=== PATIENT | male | born 1940 | race Caucasian/White ===

== ENCOUNTER → 2017-12-21 13:48 | Outpatient (CLI) | payer MEDICARE, OTHER, SELFPAY ==
--- NOTE | 2017-12-21 13:53 | DI.RAD.S_ITS ---
PROCEDURE: PAIN L/SI FACET INJ/BLK 1STL INDICATIONS: FACET PAIN FINDINGS: Fluoroscopic spot filming was performed to verify placement of spinal needles at the L3-4 and L4-5 level(s), as labeled on the films. Appropriate location(s) of the needle tip(s) was confirmed by injection of iodinated contrast. IMPRESSION: Intraoperative image documentation of injections at L3-4 and L4-5 Dictated by: Guevara Basurto M.D. on 12/21/2017 at 15:40 Approved by: Guevara Basurto M.D. on 12/21/2017 at 15:41
[2017-12-21 14:29] VITALS: PULSE 61; RESP 16; TEMP 36.7; O2SAT 97
--- NOTE | 2017-12-21 14:29 | PM.PROC.1 ---
Procedures Date/Time Date of procedure: 12/21/17 Time of procedure: 14:29 General Procedure description: PREOP DIAGNOSIS 1. FACET ARTHROPATHY, 2. AXIAL LBP, 3. MULTILEVEL DDD, POST OP DIAGNOSIS 1. FACET ARTHROPATHY, 2. AXIAL LBP, 3. MULTILEVEL DDD, PROCEDURES 1. FLUORSCOPICALLY GUIDED CONTRAST CONTROLLED FACET JOINT INJECTIONS BILATERAL L3/4, L4/5 SURGEON: Raleigh Talavera DO INDICATION Gene s referred by Dr. Youssef is referred for treatment of Axial LBP FINDINGS Multilevel Facet Arthropathy with Clinically significant axial LBP DESCRIPTION OF PROCEDURE Fluoroscopically guided, contrast-controlled bilateral L3/4, L4/5 facet joint injections. Following denial of allergy and review of potential side effects and complications, including, but not necessarily limited to, infection, allergic reaction, local tissue breakdown, stroke, temporary or permanent nerve injury, paralysis, and possible , the patient indicated that the patient understood and agreed to proceed. An informed consent document was signed by the patient, witnessed by a nurse, and placed in the patient's chart. Additionally, other treatment options including medications, modalities, and physical therapy were reviewed with the patient. Per the patient request, IV conscious sedation was administered via 3mg of Versed to patient comfort. The patient's vital signs were monitored throughout the procedure by both the nurse and the physician without significant fluctuation. The patient remained conversant throughout the procedure. In the prone position, following sterile prep and drape of the lumbar region, the posterior aspect of the L3/4, L4/5 facet joints were identified fluoroscopically. The skin was anesthetized via a 25-gauge 1.5-inch needle with 1% lidocaine solution into the corresponding facet joints. At this point, a 22-gauge 3.5-inch spinal needle was atraumatically introduced and advanced under fluoroscopic guidance into the corresponding facet joints. Following negative aspiration, injections of approximately 0.2-cc of Isovue 200 confirmed interarticular placement without vascular uptake. The identical procedure was then performed at the L3/4, L4/5 facet joints on the left. Radiological data, including multiple fluoroscopic views of the lumbosacral spine, reveal a spinal needle at the L3/4, L4/5 facet joints bilaterally. Subsequent views show flow of contrast material both superiorly and inferiorly within the joint space without vascular or intrathecal uptake. At this point, a total of 0.5 cc including a mixture of 0.25 cc Marcaine and 0.25 cc betamethasone was injected without complication into each of the corresponding facet joints. The patient was then transferred to the recovery area where they were observed for an appropriate period of time after the injection. The patient reported a VAS score of 7 prior to the procedure and a post-procedure VAS of 0. Total Fluoroscopy Time: 20.3 seconds Total Conscious Sedation Time: 24min POST OP INSTRUCTIONS The patient was provided a Pain Log to continue to record their response to the target-specific procedure prior to follow-up visit with their referring physician. Additionally, specific post-injection care instructions and a contact number to our office were provided if concerns arise regarding possible complications associated with the procedure are suspected. Raleigh Talavera DO Complications: none
[2017-12-21 14:53] VITALS: BP 144/73; PULSE 61; RESP 15; O2SAT 60
[2017-12-21 14:58] VITALS: BP 135/74; PULSE 60; RESP 14; O2SAT 135
[2017-12-21 15:03] VITALS: BP 145/65; PULSE 58; RESP 15
[2017-12-21 15:16] VITALS: BP 181/84; PULSE 57; RESP 16; O2SAT 98
[2017-12-21 15:21] VITALS: BP 185/82; PULSE 56; RESP 16; O2SAT 97
[2017-12-21] MEDS: BETAMETHASONE 30 MG/5 ML MDV 6 MG INJ (15:27)
[2017-12-21] MEDS: IOPAMIDOL 15 ML VIAL INJ (15:27)
[2017-12-21] MEDS: BUPIVACAINE 0.25% (PF) 30 ML VIAL INJ (15:27)
[2017-12-21] MEDS: LIDOCAINE 1% 20 ML INJ INJ (15:27)
[2017-12-21] MEDS: MIDAZOLAM 5 MG/ML VIAL 3 MG IV (15:29)
== END | disposition home or self-care (01) ==
PROVIDERS: PCP Family Medicine; Visit Provider Physical Medicine & Rehabilitation
DX: M47.816 Spondylosis without myelopathy or radiculopathy, lumbar region (principal); M51.36 Other intervertebral disc degeneration, lumbar region; M54.5 Low back pain
CPT/HCPCS: 64493; 64494; 99152; J0702; J2250

== ENCOUNTER 2018-01-12 12:57 | Outpatient (CLI) | payer MEDICARE, OTHER, SELFPAY ==
[2018-01-12] VITALS (7 sets, daily range): BP systolic 132–174; BP diastolic 66–81; PULSE 54–58; RESP 14–18; TEMP 36.7; O2SAT 97–100
--- NOTE | 2018-01-12 13:00 | DI.RAD.S_ITS ---
PROCEDURE: PAIN L/SI FACET INJ/BLK 1STL INDICATIONS: 77-year-old male with facet joint arthropathy. FINDINGS: Fluoroscopic spot filming was performed to verify placement of spinal needles at the bilateral L3-L5 level(s), as labeled on the films. Appropriate location(s) of the needle tip(s) was confirmed by injection of iodinated contrast. IMPRESSION: Fluoroscopic guidance for bilateral L3-L5 nerve root blocks. Dictated by: Shamir Rosenberg M.D. on 01/12/2018 at 15:46 Approved by: Shamir Rosenberg M.D. on 01/12/2018 at 15:47
--- NOTE | 2018-01-12 13:33 | P.PCN_ITS ---
Procedures Date/Time Date of procedure: 01/12/18 Time of procedure: 14:28 General Procedure description: POST OP DIAGNOSIS 1. FACET ARTHROPATHY PROCEDURES 1. BILATERAL L3, L4 AND L5 MB BLOCKS PHYSICIAN: DO JESSICA Leung is referred by Dr. Youssef for treatment of Bilateral Axial LBP. DESCRIPTION OF PROCEDURE Fluoroscopically guided, contrast-controlled bilateral L3, L4 AND L5 medial branch blocks with 0.5cc of 0.5% Marcaine. Following denial of allergy and review of potential side effects and complications, including, but not necessarily limited to, infection, allergic reaction, local tissue breakdown, nerve injury, paralysis, stroke and possible , the patient indicated that the patient understood and agreed to proceed. An informed consent document was signed by the patient, witnessed by a nurse, and placed in the patient's chart. Per the patient request, IV conscious sedation was administered via 5mg of Versed to patient comfort. The patient's vital signs were monitored throughout the procedure by both the nurse and the physician without significant fluctuation. The patient remained conversant throughout the procedure. In the prone position, following sterile prep and drape of the lumbar region, the right L3, L4 AND L5 anatomical location of the medial branch of the dorsal ramus was identified fluoroscopically. Subsequently an anesthetic skin wheal using 1% lidocaine solution was initiated at each of the anatomical spots. Subsequently then a 22-gauge 3.5-inch spinal needle was atraumatically introduced and advanced under fluoroscopic guidance at each of the corresponding sites at the right L3, L4 AND L5 MB. After negative aspiration, 0.2 cc of Isovue 200 was injected, confirming placement without vascular or intrathecal uptake. Subsequently then 0.5 cc of 0.5% Marcaine solution was injected at each of the corresponding sites at the Right L3, L4 AND L5 medial branch locations. The identical procedure was replicated on the left. The patient tolerated the procedure well without signs or symptoms of complications. Post-procedure, the patient was monitored initiating provocative activities to measure the amount of relief from block of the facetogenic pain. The patient reported a VAS of 7 prior to the procedure and a post-procedure VAS of 1. It has been a pleasure to assist in the diagnostic and therapeutic care of your patient. Total Fluoroscopy Time: 24.8 seconds Total Conscious Sedation Time: 24min POST OP INSTRUCTIONS The patient was provided with a Pain Log to complete over the next several hours and subsequent days prior to the patient's follow up with the ordering physician. If the patient has sampling theory teacher relief to the solution applied, then they may be a candidate for medial branch rhizotomy. The patient is aware , was provided, once again, with a Pain Log and will follow up with the referring physician for review and clinical correlation Raleigh Talavera DO Complications: none
[2018-01-12] MEDS: BETAMETHASONE 30 MG/5 ML MDV 6 MG INJ (13:55)
[2018-01-12] MEDS: IOPAMIDOL 15 ML VIAL 3 ML INJ (13:55)
[2018-01-12] MEDS: LIDOCAINE 1% 20 ML INJ 10 ML INJ (13:55)
[2018-01-12] MEDS: BETAMETHASONE 30 MG/5 ML MDV 12 MG INJ (13:55)
[2018-01-12] MEDS: BUPIVACAINE 0.5% (PF) 30 ML VIAL 5 ML INJ (13:55)
[2018-01-12] MEDS: MIDAZOLAM 5 MG/5 ML VIAL IV (13:55)
== END 2018-01-12 15:00 ==
LOC: RAD 12:59
PROVIDERS: PCP Family Medicine; Visit Provider Physical Medicine & Rehabilitation
DX: M47.27 Other spondylosis with radiculopathy, lumbosacral region (principal); M51.16 Intervertebral disc disorders with radiculopathy, lumbar region; M46.96 Unspecified inflammatory spondylopathy, lumbar region
CPT/HCPCS: 64493; 64494; 64495; 99152; 99153; J0702; J2250

== ENCOUNTER 2018-02-22 14:43 | Outpatient (CLI) | payer MEDICARE, OTHER, SELFPAY ==
[2018-02-22] VITALS (8 sets, daily range): BP systolic 146–166; BP diastolic 50–85; PULSE 50–57; RESP 16–18; TEMP 36.7; O2SAT 96–100
--- NOTE | 2018-02-22 14:44 | DI.RAD.S_ITS ---
PROCEDURE: PAIN L/S TRANSFORAMINAL INJECT INDICATIONS: Foraminal stenosis with right L4 radiculopathy FINDINGS: Fluoroscopic spot filming was performed to verify placement of spinal needles at the right L4 level(s), as labeled on the films. Appropriate location(s) of the needle tip(s) was confirmed by injection of iodinated contrast. IMPRESSION: Intraoperative imaging for lower lumbar injection Dictated by: Guevara Basurto M.D. on 02/23/2018 at 8:33 Approved by: Guevara Basurto M.D. on 02/23/2018 at 8:34
--- NOTE | 2018-02-22 15:31 | P.PCN_ITS ---
Procedures Date/Time Date of procedure: 02/22/18 Time of procedure: 15:30 General Procedure description: PREOP DIAGNOSIS 1. FORMAINAL STENOSIS WITH LE SYMPTOMS POST OP DIAGNOSIS 1. FORMAINAL STENOSIS WITH LE SYMPTOMS PROCEDURES 1. FLUOROSCOPICALLY GUIDED CONTRAST CONTROLLED TRANSFORAMINAL EPIDURAL STEROID INJECTION - RIGHT L4/5 TFESI PHYSICIAN: Raleigh Talavera DO INDICATIONS: Pedro is referred by Dr. Youssef for treatment of Foraminal Stenosis with Right LE Symptoms FINDINGS Foraminal Nerve Root Compression secondary to disc disease and facet hypertrophy DESCRIPTION OF PROCEDURE: Following denial of allergy and review of potential side effects and complications, including, but not necessarily limited to, infection, allergic reaction, local tissue breakdown, stroke, temporary or permanent nerve injury, paralysis, and possible , the patient indicated that the patient understood and agreed to proceed. An informed consent document was signed by the patient, witnessed by a nurse, and placed in the patient's chart. Additionally, other treatment options including medications, modalities, and physical therapy were reviewed with the patient. After review of previous anaesthesic history and IV conscious sedation the patient was deemed safe to proceed with todays procedure with IV conscious sedation as ASA class II designation. Safety time-out was performed to confirm patient ID, procedure to be performed and site of procedure. IV sedation was accomplished with a combination of 2mg of Versed was administered by the RN after DO order, titrated to patient comfort during the course of the procedure while the patient remained responsive to all verbal commands In the prone position following sterile prep and drape of the lumbar region, the Right L4/5 posterior neuroforamen was identified fluoroscopically. The skin was anesthetized via a 25-gauge 1.5-inch needle with 1% lidocaine solution. At this point, a 25-gauge 3.5-inch spinal needle was atraumatically introduced and advanced under fluoroscopic guidance through the posterior Right L4/5 neuroforamen to approximately the anterior aspect of the canal. Depth was confirmed on lateral view. Following negative aspiration, injection of approximately 1.5 cc of Isovue 200 under live fluoroscopy in the AP view confirmed excellent flow along the nerve root, into the epidural space without vascular or intrathecal uptake observed Radiological data, including multiple fluoroscopic views of the lumbosacral spine, reveal a spinal needle at the right L4/5 posterior neuroforamen. Subsequent views show flow of contrast material flowing superiorly and inferiorly along the nerve root confirming epidural flow. Subsequently, a test dose of 1.5 cc of 1% lidocaine solution was administered and patient was observed for two minutes for signs or symptoms of complications , including abdominal pain, shortness of breath, bilateral upper or lower extremity weakness, nausea and vomiting, prior to steroid injection. At this point, a total of 3 cc or 20 mg of dexamethasone and 80mg Depo Medrol was injected without incident. The procedure tolerated the procedure well without signs or symptoms of complications prior to transfer to the recovery area continued monitoring without incident.The patient was then transferred to the recovery area where they were observed for an appropriate time after the injection. The patient reported a VAS score of 7 prior to the procedure and a post- procedure VAS of 0. Total Fluoroscopy Time: 20.9 seconds Total Conscious Sedation Time: 24min POST OP INSTRUCTIONS The patient was provided a Pain Log to continue to record their response to the target-specific procedure prior to follow-up visit with their referring physician. Additionally, specific post-injection care instructions and a contact number to our office were provided if concerns arise regarding possible complications associated with the procedure are suspected. Raleigh Talavera DO Complications: none
[2018-02-22] MEDS: MIDAZOLAM 5 MG/5 ML VIAL IV (15:33)
[2018-02-22] MEDS: DEXAMETHASONE 10 MG/ML VIAL 20 MG INJ (15:38)
[2018-02-22] MEDS: methylPREDNISolone acetate 80 MG/ML VIAL INJ (15:38)
[2018-02-22] MEDS: BUPIVACAINE 0.25% (PF) VIAL 2 ML INJ (15:38)
[2018-02-22] MEDS: IOPAMIDOL 15 ML VIAL 3 ML INJ (15:38)
--- NOTE | 2018-02-23 17:49 | PC.NURSE ---
Follow up call made and pt is doing well. He had an eventful night but was pain free by today and played some golf with his new golf clubs. pt instructed to call office with any other concerns or questions. He continues to fill out pain log and has f/u appt.
== END 2018-02-22 16:38 | disposition home or self-care (01) ==
PROVIDERS: PCP Family Medicine; Visit Provider Physical Medicine & Rehabilitation
DX: M48.061 Spinal stenosis, lumbar region without neurogenic claudication (principal); M51.16 Intervertebral disc disorders with radiculopathy, lumbar region; M46.96 Unspecified inflammatory spondylopathy, lumbar region; M99.83 Other biomechanical lesions of lumbar region
CPT/HCPCS: 64483; 99152; J1040; J1100; J2250

== ENCOUNTER 2018-03-30 11:06 | Outpatient (CLI) | payer MEDICARE, OTHER, SELFPAY ==
[2018-03-30] VITALS (10 sets, daily range): BP systolic 158–193; BP diastolic 74–118; PULSE 56–63; RESP 16–20; TEMP 35.8; O2SAT 97–100
--- NOTE | 2018-03-30 11:07 | DI.RAD.S_ITS ---
PROCEDURE: PAIN L INTERLAMINAR/CAUDAL INJ INDICATIONS: Spinal stenosis with bilateral lower extremity symptoms FINDINGS: Fluoroscopic spot filming was performed to verify placement of spinal needles at the right paramedian L4-L5 level(s), as labeled on the films. Appropriate location(s) of the needle tip(s) was confirmed by injection of iodinated contrast. IMPRESSION: Successful right paramedian translaminar needle tip localization for epidural steroid injection. Dictated by: Anand Danielson M.D. on 04/01/2018 at 12:21 Approved by: Anand Danielson M.D. on 04/01/2018 at 12:22
--- NOTE | 2018-03-30 12:11 | PM.PROC.1 ---
Procedures Date/Time Date of procedure: 03/30/18 Time of procedure: 12:39 General Procedure description: PROVIDER: Raleigh Talavera DO Operative Note PREOP DIAGNOSIS 1. HNP WITH RADICULAR FEATURES, 2. MULTILEVEL CENTRAL STENOSIS, POST OP DIAGNOSIS 1. HNP WITH RADICULAR FEATURES, 2. MULTILEVEL CENTRAL STENOSIS PROCEDURES 1. FLUORSCOPICALLY GUIDED CONTRAST CONTROLLED INTERLAMINAR EPIDURAL STEROID INJECTION -L4/5 PHYSICIAN: Raleigh Talavera DO INDICATIONS: Gene is referred by Dr. Youssef for treatment of Bilateral Foraminal Stenosis R>L LE symptoms. FINDINGS Multilevel Central Spinal Stenosis with Nerve Root Compression DESCRIPTION OF PROCEDURE Fluoroscopically guided, contrast-controlled L4/5 translaminar epidural steroid injection. Following denial of allergy and review of potential side effects and complications, including, but not necessarily limited to, infection, allergic reaction, local tissue breakdown, temporary as well as permanent nerve injury, paralysis, stroke and possible , the patient indicated that the patient understood and agreed to proceed. An informed consent document was signed by the patient, witnessed by a nurse, and placed in the patient's chart. Additionally, other treatment options including modalities, medications, and physical therapy were reviewed with the patient. After review of previous anaesthesic history and IV conscious sedation the patient was deemed safe to proceed with todays procedure with IV conscious sedation as ASA class II designation. Safety time-out was performed to confirm patient ID, procedure to be performed and site of procedure. IV sedation was accomplished with a combination of 2mg was administered by the RN after DO order, titrated to patient comfort during the course of the procedure while the patient remained responsive to all verbal commands In the prone position, following sterile prep and drape of the lumbar region, the L4/5 translaminar space was identified fluoroscopically. The skin was anesthetized via a 25-gauge, 1.5-inch needle with 1% lidocaine solution. At this point, a 22-gauge short bevel spinal needle was atraumatically introduced and advanced under fluoroscopic guidance into the region of the L4/5 translaminar space. Depth was confirmed on lateral view. Radiological data, including multiple fluoroscopic views of the lumbar spine, reveal a spinal needle at the L4/5 translaminar space. Lateral views then show placement of the needle in the epidural space. Subsequent views show contrast material flowing superiorly and inferiorly in the epidural space. No vascular or intrathecal uptake is observed. At this point, using loss of resistance technique with saline and air, the epidural space was entered. This was confirmed following negative aspiration with injection of approximately 1.5 cc of Isovue 200, showing excellent epidural flow without vascular or intrathecal uptake. At this point, 1 cc of 1% lidocaine solution combined with 3 cc or 20 mg of dexamethasone and 80mg Depo medrol was injected without incident. The patient tolerated the procedure well without signs or symptoms of complications prior to transfer to the recovery area continued monitoring without incident. The patient was then transferred to the recovery area where they were observed for an appropriate period of time after the injection. The patient reported a VAS score of 6 prior to the procedure and a post-procedure VAS of 0. Total Fluoroscopy Time: 11.8 seconds, 8.99 mGy Total Conscious Sedation Time: 24min POST OP INSTRUCTIONS The patient was provided a Pain Log to continue to record their response to the target-specific procedure prior to follow-up visit with their referring physician. Additionally, specific post-injection care instructions and a contact number to our office were provided if concerns arise regarding possible complications associated with the procedure are suspected. Raleigh Talavera DO Complications: none
[2018-03-30] MEDS: MIDAZOLAM 5 MG/5 ML VIAL IV (12:28)
[2018-03-30] MEDS: IOPAMIDOL 15 ML VIAL 3 ML INJ (12:32)
[2018-03-30] MEDS: BUPIVACAINE 0.25% (PF) VIAL 2 ML INJ (12:32)
[2018-03-30] MEDS: DEXAMETHASONE 10 MG/ML VIAL 20 MG INJ (12:33)
[2018-03-30] MEDS: methylPREDNISolone acetate 80 MG/ML VIAL INJ (12:33)
--- NOTE | 2018-03-30 12:40 | P.PCN_ITS ---
Procedures Date/Time Date of procedure: 03/30/18 Time of procedure: 12:39 General Procedure description: PROVIDER: Raleigh Talavera DO Operative Note PREOP DIAGNOSIS 1. HNP WITH RADICULAR FEATURES, 2. MULTILEVEL CENTRAL STENOSIS, POST OP DIAGNOSIS 1. HNP WITH RADICULAR FEATURES, 2. MULTILEVEL CENTRAL STENOSIS PROCEDURES 1. FLUORSCOPICALLY GUIDED CONTRAST CONTROLLED INTERLAMINAR EPIDURAL STEROID INJECTION -L4/5 PHYSICIAN: Raleigh Talavera DO INDICATIONS: Gene is referred by Dr. Youssef for treatment of Bilateral Foraminal Stenosis R >L LE symptoms. FINDINGS Multilevel Central Spinal Stenosis with Nerve Root Compression DESCRIPTION OF PROCEDURE Fluoroscopically guided, contrast-controlled L4/5 translaminar epidural steroid injection. Following denial of allergy and review of potential side effects and complications, including, but not necessarily limited to, infection, allergic reaction, local tissue breakdown, temporary as well as permanent nerve injury, paralysis, stroke and possible , the patient indicated that the patient understood and agreed to proceed. An informed consent document was signed by the patient, witnessed by a nurse, and placed in the patient's chart. Additionally, other treatment options including modalities, medications, and physical therapy were reviewed with the patient. After review of previous anaesthesic history and IV conscious sedation the patient was deemed safe to proceed with todays procedure with IV conscious sedation as ASA class II designation. Safety time-out was performed to confirm patient ID, procedure to be performed and site of procedure. IV sedation was accomplished with a combination of 2mg was administered by the RN after DO order , titrated to patient comfort during the course of the procedure while the patient remained responsive to all verbal commands In the prone position, following sterile prep and drape of the lumbar region, the L4/5 translaminar space was identified fluoroscopically. The skin was anesthetized via a 25-gauge, 1.5-inch needle with 1% lidocaine solution. At this point, a 22-gauge short bevel spinal needle was atraumatically introduced and advanced under fluoroscopic guidance into the region of the L4/5 translaminar space. Depth was confirmed on lateral view. Radiological data, including multiple fluoroscopic views of the lumbar spine, reveal a spinal needle at the L4/5 translaminar space. Lateral views then show placement of the needle in the epidural space. Subsequent views show contrast material flowing superiorly and inferiorly in the epidural space. No vascular or intrathecal uptake is observed. At this point, using loss of resistance technique with saline and air, the epidural space was entered. This was confirmed following negative aspiration with injection of approximately 1.5 cc of Isovue 200, showing excellent epidural flow without vascular or intrathecal uptake. At this point, 1 cc of 1 % lidocaine solution combined with 3 cc or 20 mg of dexamethasone and 80mg Depo medrol was injected without incident. The patient tolerated the procedure well without signs or symptoms of complications prior to transfer to the recovery area continued monitoring without incident. The patient was then transferred to the recovery area where they were observed for an appropriate period of time after the injection. The patient reported a VAS score of 6 prior to the procedure and a post- procedure VAS of 0. Total Fluoroscopy Time: 11.8 seconds, 8.99 mGy Total Conscious Sedation Time: 24min POST OP INSTRUCTIONS The patient was provided a Pain Log to continue to record their response to the target-specific procedure prior to follow-up visit with their referring physician. Additionally, specific post-injection care instructions and a contact number to our office were provided if concerns arise regarding possible complications associated with the procedure are suspected. Raleigh Talavera DO Complications: none
== END 2018-03-30 13:08 | disposition home or self-care (01) ==
LOC: RAD 11:07
PROVIDERS: PCP Family Medicine; Visit Provider Physical Medicine & Rehabilitation
DX: M48.061 Spinal stenosis, lumbar region without neurogenic claudication (principal); M51.26 Other intervertebral disc displacement, lumbar region; M54.16 Radiculopathy, lumbar region
CPT/HCPCS: 62323; 99152; J1040; J1100; J2250

== ENCOUNTER 2018-05-31 09:53 | Outpatient (CLI) | payer MEDICARE, OTHER, SELFPAY ==
[2018-05-31] VITALS (15 sets, daily range): BP systolic 145–176; BP diastolic 77–105; PULSE 13–71; RESP 9–18; TEMP 36.2; O2SAT 96–99
--- NOTE | 2018-05-31 09:55 | DI.RAD.S_ITS ---
PROCEDURE: PAIN L/S MED/LAT N RFA BILAT INDICATIONS: Lumbosacral spondylosis FINDINGS: Fluoroscopic spot filming was performed to verify placement of spinal needles at the L3, L4 and L5 level(s), as labeled on the films. Appropriate location(s) of the needle tip(s) was confirmed by injection of iodinated contrast. IMPRESSION: Fluoroscopy for pain management. Dictated by: Deonte Barragan M.D. on 05/31/2018 at 15:41 Approved by: Deonte Barragan M.D. on 05/31/2018 at 15:41
--- NOTE | 2018-05-31 10:37 | P.PCN_ITS ---
Procedures Date/Time Date of procedure: 05/31/18 Time of procedure: 10:26 General Procedure description: PREOP DIAGNOSIS 1. RECALCITRANT FACET ARTHROPATHY, POST OP DIAGNOSIS 1. RECALCITRANT FACET ARTHROPATHY PROCEDURES 1. BILATERAL L3, L4 AND L5 MEDIAL BRANCH RADIOFREQUENCY NEUROTOMY PHYSICIAN: Raleigh Talavera DO INDICATIONS: Gene is referred by Dr. Youssef for treatment of facet arthropathy. DESCRIPTION OF PROCEDURE Bilateral L3, L4 and L5 medial branch radiofrequency neurotomy The patient is well known to this clinic having undergone previous facet injections with good but temporary relief. The patient has experienced appropriate, concordant relief with previous facet and median branch blocks but the patient's pain has been recalcitrant to further conservative measures. Therefore, based upon the patient's relief and persistent symptoms, the patient is considered an appropriate candidate for facet rhizotomy. All of the patient' s questions regarding the risks versus benefits of the procedure, including, but not limited to, bleeding, infection, temporary as well as lasting nerve injury, paralysis, stroke, and , as well treatment alternatives were answered to satisfaction. After obtaining informed consent, denial of pertinent drug allergies, as well as being made aware of the potential risks of bleeding, infection, spinal cord trauma, paralysis, temporary and permanent nerve damage, seizure, stroke, and possible , the patient was brought to the fluoroscopy suite and positioned prone on the fluoroscopy table. The lumbar region was prepped with Betadine and covered with a fenestrated drape in the usual sterile fashion. Appropriate monitors applied including pulse oximeter, pulse, and blood pressure for regular monitoring throughout the procedure. After review of previous anaesthesic history and IV conscious sedation the patient was deemed safe to proceed with todays procedure with IV conscious sedation as ASA class II designation. Safety time-out was performed to confirm patient ID, procedure to be performed and site of procedure. IV sedation was accomplished with a combination of 5mg of Versed administered by the RN after DO order, titrated to patient comfort during the course of the procedure while the patient remained responsive to all verbal commands. After local infiltration using 1% lidocaine, under fluoroscopic guidance, a 10- cm RF insulated needle with a 10-mm active tip was positioned parallel to the junction of the right the superior articulating process where the L5 medial branch resides. Needle placement was confirmed with sensory stimulation at 50 Hz, with motor stimulation of .5v on the right which produced local stimulation without radicular component. The stimulation was then increased to 1.5v with, once again, only local multifidus stimulation without radicular component. This was then followed by two discreet lesions performed at 80 degrees Celsius for 90 seconds each. The needle was then removed and the identical procedure was performed along the length of the right L4 medial branch with motor stimulation at .7v on the right. The identical procedure was once again performed along the length of the right L5 and medial branch with motor stimulation of .5v on the right. The identical procedures were repeated on the left. The patient tolerated the procedure well without signs or symptoms of complications prior to transfer to the recovery area continued monitoring without incident. The patient was then transferred to the recovery area where they were observed for an appropriate period of time after the injection. The patient reported a VAS score of 9 prior to the procedure and a post-procedure VAS of 0. Total Fluoroscopy Time: 22.7 seconds Total Conscious Sedation Time: 34min POST OP INSTRUCTIONS The patient was provided a Pain Log to continue to record the patient's response to the target-specific procedure prior to the patient's follow-up visit with the referring physician. Additionally, specific post-injection care instructions and a contact number to our office were provided if concerns arise regarding possible complications associated with the procedure are suspected. Raleigh Talavera DO Complications: none
[2018-05-31] MEDS: MIDAZOLAM 5 MG/5 ML VIAL IV (10:54)
[2018-05-31] MEDS: LIDOCAINE 1% 20 ML INJ 10 ML INJ (11:24)
[2018-05-31] MEDS: BUPIVACAINE 0.5% (PF) VIAL 5 ML INJ (11:24)
--- NOTE | 2018-05-31 12:03 | PC.NURSE ---
ACCEPTED CARE OF PT AFTER PROCEDURE FROM [facility] IN STABLE CONDITION
--- NOTE | 2018-05-31 12:07 | PC.NURSE ---
procedure finished, able to get pt off table and into wheelchair with only stand by assist. vss, pt alert, transferring him to pre procedure room and hand off to Idania MANCIA
== END 2018-05-31 12:29 | disposition home or self-care (01) ==
LOC: RAD 09:54
PROVIDERS: PCP Family Medicine; Visit Provider Physical Medicine & Rehabilitation
DX: M47.817 Spondylosis without myelopathy or radiculopathy, lumbosacral region (principal); M47.27 Other spondylosis with radiculopathy, lumbosacral region; M48.061 Spinal stenosis, lumbar region without neurogenic claudication
CPT/HCPCS: 64635; 64636; 99152; 99153; J2250